=== PATIENT | female | born 1945 | race Caucasian/White ===

== ENCOUNTER 2025-02-25 18:27 | Emergency (ER) | payer MEDICARE, SELFPAY ==
--- NOTE | 2025-02-25 | ECG_ITS ---
Test Reason : ELEVATED TROPONIN Blood Pressure : */* mmHG Vent. Rate : 53 BPM Atrial Rate : 53 BPM P-R Int : 218 ms QRS Dur : 106 ms QT Int : 484 ms P-R-T Axes : 90 59 113 degrees QTcB Int : 454 ms Sinus bradycardia with 1st degree A-V block Nonspecific ST and T wave abnormality Abnormal ECG When compared with ECG of 25-Feb-2025 18:39, No significant change was found Referred By: Krista Crawford Electronically Signed By: COY DUKE MD
--- NOTE | 2025-02-25 | ECG_ITS ---
Test Reason : WEAKNESS Blood Pressure : */* mmHG Vent. Rate : 74 BPM Atrial Rate : 74 BPM P-R Int : 304 ms QRS Dur : 96 ms QT Int : 420 ms P-R-T Axes : 56 49 106 degrees QTcB Int : 466 ms Sinus rhythm with 1st degree A-V block Nonspecific T wave abnormality Abnormal ECG No previous ECGs available Referred By: Generic ED Physician Electronically Signed By: COY DUKE MD
--- NOTE | ~2025-02-25 | XR_ITS ---
CLINICAL HISTORY: near syncope 2 view chest x-ray Comparison: None provided Findings: The lungs are clear. No pleural effusion or pneumothorax. Normal size heart. Intact median sternotomy. Atrial appendage clip. Aortic valve prosthesis. No acute fracture. IMPRESSION: 1. No acute findings. This document has been electronically signed by: Yariel Banks MD on 02/25/2025 23:38:52
[2025-02-25 18:51] VITALS: BP 106/64; BP 109/61; PULSE 73; PULSE 85; RESP 18; TEMP 36.4; O2SAT 96; O2SAT 97; BMI 25.2
[2025-02-25 19:29] VITALS: BP 119/65; PULSE 67; RESP 18; O2SAT 100
[2025-02-25 20:52] VITALS: BP 138/60; PULSE 50; RESP 12; TEMP 36.6; O2SAT 99
[2025-02-25 21:04] LABS: MANUAL DIFF FLAG NO
[2025-02-25 21:05] LABS: Hematocrit 37.5 % (37.0-47.0); Hemoglobin 12.6 g/dl (12.0-16.0); Imm Gran Abs Auto 0.07 X10*3/uL (0.00-0.03); Imm Gran Pct Auto 0.8 % (0.0-0.4); Lymphocytes Absolute Auto 0.8 X10*3/uL (1.2-4.9); Mean Corpuscular HGB Conc 33.6 g/dl (31.0-35.0); Mean Corpuscular Hemoglobin 31.7 pg (27.0-33.0); Mean Corpuscular Volume 94.2 fL (80.0-98.0); NRBC Abs Auto 0.000 X10*3/uL (0.0-0.012); NRBC Pct Auto 0.0 /100WBC (0.0-0.2); Platelet Count 139 X10*3/uL (160-400); Red Blood Count 3.98 X10*6/uL (4.20-5.50); White Blood Count 9.1 X10*3/uL (4.8-10.8)
--- NOTE | 2025-02-25 21:13 | ED.GENADULT ---
HPI - General Adult General Chief complaint: General Medical Stated complaint: PMHX TIA Time Seen by Provider: 02/25/25 21:13 Source: patient, EMS and RN notes reviewed Mode of arrival: EMS Limitations: no limitations History of Present Illness ED Provider: Dr. 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 Patient states she went out to dinner tonight and started to develop some abdominal cramping while eating. Admits that she was able to make it home and when she sat on the toilet to have a bowel movement, she became very sweaty and dizzy and nearly lost consciousness. Does not feel that she fully passed out but her states that she may have. The episode lasted about 5-10 minutes and went away without intervention. She admits that she was straining heavily on the toilet to have the bowel movement but never actually had 1. No associated nausea. Denies chest pain or difficulty breathing. No lower extremity edema or pain. Has been taking her warfarin as prescribed although recently held below target INR of 2.7 at her last check and was told to increase her dose to 5 mg daily. Of note, she was recently started on an antibiotic for an infection in her jaw and finish the course of an unknown antibiotic just yesterday. She did not take probiotics. Related Data Allergies Allergy/AdvReac Type Severity Reaction Status Date / Time Penicillins Allergy Anaphylaxis Verified 02/25/25 18:55 Review of Systems Review of Systems: as per HPI, full review of systems performed and negative but for the above mentioned pertinent positives and negatives. [facility] Past Medical History Attestation statement: The following information was validated with the patient. (bovine heart valve replacement, CVA) Social History Social History Smoked in Last 30 Days: No Use of substances other than those prescribed or required for medical reasons: No Advance Directives: No Advance Directives Information Provided: Yes Do you have a plan to hurt others: No Plan Physical Exam ED Exam Exam: GENERAL: Chronically ill-appearing, conversant, no acute distress. SKIN: Normal skin color for ethnicity, warm, dry, no rashes noted. HEENT: Normocephalic, atraumatic, no stridor, posterior oropharynx nonerythematous, EOMI. NECK: Soft, supple, full ROM, midline structures nontender, no step-offs, no deformities, no lymphadenopathy. CHEST: Heart regular bradycardia, no murmurs, symmetric chest rise and fall. PULMONARY: Clear to auscultation bilaterally, no labored breathing, no wheezes/rhales/ rhonchi. ABDOMINAL: Soft, nondistended, nontender, positive bowel sounds in all quadrants. : Deferred. MUSCULOSKELETAL: Normal tone, full range of motion, no deformities, no peripheral edema. NEURO: Alert and oriented to person, CN II through XII intact, no focal neurologic deficits. PSYCHIATRIC: Flat affect, fluid speech, appropriate demeanor. Vital Signs: Vital Signs - 24 hr 02/25/25 18:51 02/25/25 19:29 02/25/25 20:52 Temperature 97.6 F 97.8 F Pulse Rate 73 67 50 Respiratory Rate 18 18 12 Blood Pressure 106/64 119/65 138/60 Pulse Oximetry 97 100 99 Oxygen Delivery Method Room Air Room Air Room Air BMI result Body Mass Index 25.2 Medical Decision Making Medical Decision Making MDM Narrative: Patient presents today with chief complaint of near syncope. I considered multiple diagnoses of etiology including most importantly cardiac arrhythmia, seizure, subarachnoid hemorrhage, vascular catastrophe such as AAA, as well as other more common etiologies such as a vasovagal syncope and orthostasis. Broad-based work-up was initiated to evaluate etiology including EKG and chest x-rays. 12:03 AM 02/26/2025 (Dr. Krista Crawford, D.O.) workup today has been reassuring. EKG is not ischemic. Her cardiac enzyme was initially elevated but flat. She has no chest pain or difficulty breathing. No further episodes of feeling lightheaded. I do feel this is related to vasovagal syncope or near-syncope in the setting of straining on the toilet today. She was recently on antibiotics and I think that she is going to develop diarrhea in the next couple of days. We discussed this at length. Importance of hydration and taking probiotics for the gut. Of note, she recently had an echocardiogram last week which was reportedly ?normal? per patient. Discussed extensively the importance of follow-up with cardiology as well as strict return precautions to the emergency department. She understands agrees with plan for discharge. Discharged home stable condition. Differential Diagnosis Differential Diagnoses: The differential diagnosis associated with the presentation includes (As above) Admission/Observation Consideration of admission/observation: Escalation of care including admission/observation considered Lab Data MDM Lab Attestation statement: I reviewed the patient's lab results. 21:15 Cardiac enzyme notably elevated at 128.3 23:20 Repeat cardiac enzyme 123.6. Will give her coumadin since her INR is subtherapeutic. 02/25/25 20:59 02/25/25 20:59 Labs: Lab Results 02/25/25 02/25/25 02/25/25 Range/Units 20:59 22:01 22:54 WBC 9.1 (4.8-10.8) X10*3/uL RBC 3.98 L (4.20-5.50) X10*6/uL Hgb 12.6 (12.0-16.0) g/dl Hct 37.5 (37.0-47.0) % MCV 94.2 (80.0-98.0) fL MCH 31.7 (27.0-33.0) pg MCHC 33.6 (31.0-35.0) g/dl RDW 15.2 (11.0-16.0) % Plt Count 139 L (160-400) X10*3/uL MPV 8.9 L (9.4-12.3) fL Immature Gran % (Auto) 0.8 H (0.0-0.4) % Neut % (Auto) 83.6 H (45-73) % Lymph % (Auto) 8.2 L (20-40) % [place] % (Auto) 6.8 (2-11) % Eos % (Auto) 0.3 (0-4) % Baso % (Auto) 0.3 (0-2) % Lymph # (Auto) 0.8 L (1.2-4.9) X10*3/uL [place] # (Auto) 0.6 (0.1-1.2) X10*3/uL Eos # (Auto) 0.0 (0.0-0.4) X10*3/uL Baso # (Auto) 0.0 (0.0-0.2) X10*3/uL Abs Immat Gran (auto) 0.07 H (0.00-0.03) X10*3/uL Absolute Neuts (auto) 7.6 (2.0-8.3) x10*3/uL Absolute Nucleated RBC 0.000 (0.0-0.012) X10*3/uL Nucleated RBC % (auto) 0.0 (0.0-0.2) /100WBC PT 30.5 H (10.9-12.4) SEC INR 2.7 H (0.9-1.1) Sodium 144 (135-145) mmol/L Potassium 4.5 (3.3-5.1) mmol/L Chloride 115 H (96-108) mmol/L Carbon Dioxide 19 L (22-29) mmol/L Anion Gap 15 (12-20) BUN 29 H (9-16) mg/dL Creatinine 1.31 (0.5-1.4) mg/dL Estim Creat Clear Calc 36.2 Estimated GFR 39 Random Glucose 129 H (60-115) mg/dL Calcium 8.9 (8.4-10.2) mg/dL Magnesium 2.3 (1.6-2.6) mg/dL Total Bilirubin 0.3 (0.0-1.0) mg/dL AST 31 (5-31) U/L ALT 22 (0-31) U/L Alkaline Phosphatase 131 H (39-117) U/L Troponin I High Sens 128.3 H* 123.6 H* (<3.5-17.0) ng/L Total Protein 6.9 (6.5-8.0) g/dL Albumin 3.8 (3.5-5.0) g/dL Independent Interpretation I performed an independent interpretation of an: EKG Interpretation: 18:39 My independent interpretation of the ECG reveals normal sinus rhythm with rate of 74, normal axis, first-degree AV block MO interval 304, no ST elevations or depressions to suggest ischemic changes, no previous for comparison. 21:35 My independent interpretation of the ECG reveals normal sinus bradycardia with rate of 3, normal axis, first-degree AV block with MO interval 218, no ST elevations or depressions to suggest ischemic changes, relatively unchanged from previous. Radiology Impression Discussion of test interpretation with radiology: I have reviewed the radiologist's reading. Radiologist Impression: 2 view chest x-ray Comparison: None provided Findings: The lungs are clear. No pleural effusion or pneumothorax. Normal size heart. Intact median sternotomy. Atrial appendage clip. Aortic valve prosthesis. No acute fracture. IMPRESSION: 1. No acute findings. This document has been electronically signed by: Yareil Banks MD on 02/25/2025 23:38:52 Independent Historian Clinical information obtained from an independent historian. History obtained from or confirmed by: EMS Chronic Conditions Patient?s care impacted by: Other (CVA, heart valve replacement on Coumadin) Discharge Plan Discharge Clinical Impression: Vasovagal near syncope, History of cerebrovascular accident (CVA) due to embolism, Anticoagulated on warfarin Patient Disposition: Home, Self-Care Instructions: Near Syncope (ED) Additional Instructions: Please follow-up with your primary care doctor and chairman president and chief executive officer as soon as possible. Return to the emergency department sooner if you develop any new or worsening symptoms including: Chest pain, difficulty breathing, fevers greater than 100?, worsening abdominal pain or vomiting, any new symptom that concerns you. Call 911 with any medical emergency. Print Language: Wallisian
[2025-02-25 21:19] LABS: Alanine Aminotransferase 22 U/L (0-31); Albumin Level 3.8 g/dL (3.5-5.0); Alkaline Phosphatase 131 U/L (39-117); Anion Gap 15 (12-20); Aspartate Amino Transferase 31 U/L (5-31); Blood Urea Nitrogen 29 mg/dL (9-16); Calcium 8.9 mg/dL (8.4-10.2); Carbon Dioxide 19 mmol/L (22-29); Chloride 115 mmol/L (96-108); Creatinine Clr Calc Pharmacy 36.2; Estimated Glomerular Filt Rate 39; Potassium 4.5 mmol/L (3.3-5.1); Sodium 144 mmol/L (135-145); Total Protein 6.9 g/dL (6.5-8.0)
[2025-02-25 21:31] LABS: Magnesium 2.3 mg/dL (1.6-2.6); Troponin-I High Sensitivity 128.3 ng/L (<3.5-17.0)
[2025-02-25 22:12] LABS: INTERNATIONAL NORM RATIO 2.7 (0.9-1.1); Prothrombin Time 30.5 SEC (10.9-12.4)
[2025-02-25 23:20] LABS: Troponin-I High Sensitivity 123.6 ng/L (<3.5-17.0)
[2025-02-26 00:30] VITALS: BP 138/60; PULSE 50; RESP 12; TEMP 36.6; O2SAT 99
== END 2025-02-26 00:35 | disposition home or self-care (01) ==
PROVIDERS: Emergency Provider Emergency Medicine; PCP Physician Assistant
DX: R55 Syncope and collapse (principal); R00.1 Bradycardia, unspecified; I44.0 Atrioventricular block, first degree; Z79.899 Other long term (current) drug therapy; Z86.73 Personal history of transient ischemic attack (TIA), and cerebral infarction without residual deficits; Z79.01 Long term (current) use of anticoagulants
CPT/HCPCS: 36415; 71046; 80053; 83735; 84484; 85025; 85610; 93005; 99283; 99284

== ENCOUNTER → 2025-02-25 18:39 | Outpatient (BNV) | payer MEDICARE, SELFPAY | PROVIDERS: Emergency Provider Emergency Medicine; PCP Physician Assistant; Visit Provider Internal Medicine Cardiovascular Disease | DX: I44.0 Atrioventricular block, first degree (principal); R00.1 Bradycardia, unspecified | CPT/HCPCS: 93010 ==

== ENCOUNTER → 2025-02-25 21:50 | Outpatient (BNV) | payer MEDICARE, SELFPAY | PROVIDERS: Emergency Provider Emergency Medicine; PCP Physician Assistant; Visit Provider Radiology Diagnostic Radiology | DX: R68.89 Other general symptoms and signs (principal) | CPT/HCPCS: 71046 ==